=== PATIENT | female | born 1985 | race Two or more races ===

== ENCOUNTER → 2018-12-10 | Outpatient (CLI) | payer OTHER ==
[~2018-12-10] MED LIST: ATOR20TA65 PO; LORA10TA2 PO; METF500T4 PO
[2018-12-10 11:11] LABS: PLATELET COUNT, AUTOMATED 229 K/uL (150-450)
[2018-12-10 11:24] LABS: LDL CHOLESTEROL 34 mg/dl
== END ==
LOC: LAB 10:49
PROVIDERS: ATTEND Internal Medicine
DX: E78.5 Hyperlipidemia, unspecified (principal); E11.9 Type 2 diabetes mellitus without complications
CPT/HCPCS: 36415; 82040; 82247; 82310; 82374; 82435; 82465; 82565; 82947; 83036; 83718; 84075; 84132; 84155; 84295; 84450; 84460; 84478; 84520; 85025